=== PATIENT | female | born 1995 | race African-American/Black ===

== ENCOUNTER 2021-06-24 12:37 | Emergency (ER) | payer OTHER ==
[~2021-06-24] VITALS: Ht 172.7 cm; Wt 76.5 kg
--- NOTE | 2021-06-24 12:45 | NUR ---
[id number] FOR C/O ANXIETY, RESTLESSNESS, DIARRHEA X10/DAY AND POOR PO INTAKE SINCE TUESDAY. LAST ALCOHOL DRINK WAS 06/21/21. AMBULATORY, AAOX4, NOT IN DISTRESS. PLACED ON BED COMFORTABLY.
--- NOTE | 2021-06-24 12:46 | NUR ---
AT BED SIDE
[2021-06-24] MEDS ORDERED: LORAZEPAM INJ 2 MG/ML VIAL ONE ×2 (12:52→13:26)
[2021-06-24] MEDS ORDERED: LORAZEPAM INJ 2 MG/ML VIAL IM ONE ×2 (13:00→13:30)
[2021-06-24] MEDS ORDERED: CHLO25CA22 PO (13:25)
[2021-06-24 13:53] VITALS: BP 130/79
--- NOTE | 2021-06-24 13:53 | NUR ---
Patient discharged to home in stable condition. Written and verbal after care instructions given. Patient verbalizes understanding of instruction.
== END 2021-06-24 13:54 | disposition admitted as inpatient to this hospital (09) ==
LOC: ER 12:44
DX: F10.239 Alcohol dependence with withdrawal, unspecified (principal); Z79.899 Other long term (current) drug therapy; Y90.9 Presence of alcohol in blood, level not specified
CPT/HCPCS: 96372 ×2; 99285; J2060 ×2

== ENCOUNTER 2021-07-08 15:31 | Emergency (ER) | payer OTHER ==
[~2021-07-08] VITALS: Ht 172.7 cm; Wt 72.6 kg
[~2021-07-08 15:31] MED LIST: CHLO25CA22 PO
--- NOTE | 2021-07-08 15:31 | NUR ---
BIBS C/O ALCOHOL WITHDRAWALS, LAST DRINK WAS THIS PAST TUESDAY PT STATED SHES EXPERIENCING TREMORS, SOB, DIARRHEA, AND ANXIETY. VITALS ARE WITHIN NORMAL LIMITS. BREATHING IS EVEN AND UNLABORED. NO RESP DISTRESS NOTED. AWAITING MD BROWN.
[2021-07-08] MEDS ORDERED: MAG HYDROX/AL HYDROX/SIMETH 30 ML UDC ONE (16:15)
[2021-07-08] MEDS ORDERED: LIDOCAINE VISCOUS 2% UD 15 ML UDC ONE (16:16)
[2021-07-08] MEDS ORDERED: FAMOTIDINE/PF INJ 20 MG/2 ML VIAL IV ONE ×2 (16:16→16:30)
[2021-07-08] MEDS ORDERED: ONDANSETRON HCL/PF 4 MG/2 ML VIAL ONE (16:16)
[2021-07-08] MEDS ORDERED: MAG HYDROX/AL HYDROX/SIMETH 30 ML UDC PO ONE (16:30)
[2021-07-08] MEDS ORDERED: ONDANSETRON HCL/PF 4 MG/2 ML VIAL IVP ONE (16:30)
[2021-07-08] MEDS ORDERED: LIDOCAINE VISCOUS 2% UD 15 ML UDC MM ONE (16:30)
[2021-07-08] MEDS ORDERED: IV NS 0.9% 1,000 ML BAG IV ONE (16:30)
[2021-07-08] MEDS ORDERED: LORAZEPAM 1 MG TABLET PO ONE (17:30)
[2021-07-08] MEDS ORDERED: LORAZEPAM INJ 2 MG/ML VIAL ONE (17:36)
[2021-07-08] MEDS ORDERED: FAMO-131 PO (17:41)
[2021-07-08] MEDS ORDERED: ONDA4TAB5 PO (17:41)
--- NOTE | 2021-07-08 17:53 | NUR ---
COVID ANTIGEN SWAB DONE AND SENT TO THE LAB
[2021-07-08 18:26] VITALS: BP 119/68
--- NOTE | 2021-07-08 18:26 | NUR ---
IV removed. Catheter intact and site benign. Pressure and 4x4 applied to site. No bleeding noted.Patient discharged to home in stable condition. Written and verbal after care instructions given. Patient verbalizes understanding of instruction.
== END 2021-07-08 18:26 | disposition home or self-care (01) ==
LOC: ER 15:36
DX: F10.139 Alcohol abuse with withdrawal, unspecified (principal); K29.20 Alcoholic gastritis without bleeding; F41.9 Anxiety disorder, unspecified; Z79.899 Other long term (current) drug therapy; Y90.9 Presence of alcohol in blood, level not specified
CPT/HCPCS: 93005; 96361; 96374; 96375; 99284; J2405; J3490; J7030; J2060

== ENCOUNTER 2023-06-11 11:49 | Emergency (ER) | payer OTHER ==
[~2023-06-11] VITALS: Ht 175.3 cm; Wt 79.4 kg
[~2023-06-11 11:49] MED LIST changes: +FAMO-131 PO; +ONDA4TAB5 PO
[2023-06-11 11:55] VITALS: BP 126/61; TEMP 98.2
[2023-06-11] MEDS ORDERED: BACI500P4 TP (12:13)
[2023-06-11] MEDS: BACITRACIN ZINC OINT PACKET 1 EA PACKET TP ONE (12:26)
[2023-06-11 12:27] VITALS: O2SAT 98
== END 2023-06-11 12:28 | disposition home or self-care (01) ==
LOC: ER 11:49
DX: S61.303A Unspecified open wound of left middle finger with damage to nail, initial encounter (principal); F41.9 Anxiety disorder, unspecified; Z79.899 Other long term (current) drug therapy; Y04.0XXA Assault by unarmed brawl or fight, initial encounter; Y93.89 Activity, other specified; Y92.89 Other specified places as the place of occurrence of the external cause; Y99.8 Other external cause status

== ENCOUNTER 2024-06-30 08:45 | Emergency (ER) | payer OTHER ==
[~2024-06-30] VITALS: Ht 172.7 cm; Wt 77.1 kg
[~2024-06-30 08:45] MED LIST changes: +BACI500P4 TP
[2024-06-30 08:52] VITALS: BP 124/83; TEMP 98; O2SAT 98
[2024-06-30] MEDS ORDERED: CHLO25CA22 PO (08:58)
[2024-06-30] MEDS ORDERED: LORAZEPAM 1 MG TABLET ONE (09:04)
[2024-06-30] MEDS: LORAZEPAM 1 MG TABLET PO ONE (09:18)
== END 2024-06-30 09:19 | disposition home or self-care (01) ==
LOC: ER 08:53
DX: F10.139 Alcohol abuse with withdrawal, unspecified (principal); F41.9 Anxiety disorder, unspecified; F32.A Depression, unspecified; Y90.9 Presence of alcohol in blood, level not specified